=== PATIENT | female | born 1985 | race Caucasian/White ===

== ENCOUNTER → 2016-04-15 | Outpatient (CLI) | payer BC, OTHER ==
[~2016-04-15] MED LIST: MOTRIN PO; TYLE325T5 PO; multivitamin PO
[2016-04-15 19:07] LABS: BASO % 0.3 % (0.0-1.0); EOS # 0.2 K/mm3 (0.0-0.50); LARGE UNSTAINED CELL # 0.1 K/mm3 (0.0-0.4); LARGE UNSTAINED CELL % 1.8 % (0.0-4.0); LYMPH # 2.5 K/mm3 (1.5-4.5); LYMPH % 30.6 % (24.0-44.0); MEAN CORPUSCULAR HEMOGLOBIN 32.6 pg (27.0-33.0); MEAN CORPUSCULAR HGB CONC 33.6 g/dl (32.0-36.5); MEAN CORPUSCULAR VOLUME 96.9 fl (80.0-96.0); MONO # 0.5 K/mm3 (0.0-0.8); MONO % 6.4 % (0.0-5.0); NEUTROPHILS # 4.5 K/mm3 (1.8-7.7); PLATELET COUNT, AUTOMATED 235 k/mm3 (150-450); RED CELL DISTRIBUTION WIDTH 12.5 % (11.5-14.5); WHITE BLOOD COUNT 7.7 K/mm3 (4.0-10.0)
[2016-04-16 11:04] LABS: HBsAg Prenatal NEGATIVE (NEGATIVE)
[2016-04-16 14:46] LABS: CONTROL LINE INT CTR LINE PRESENT; HIV SCRN NEGATIVE (NEGATIVE); HIV SCRN1 NEGATIVE (NEGATIVE)
== END ==
LOC: M SMT 13:18
PROVIDERS: ATTEND Advanced Practice Midwife
DX: Z34.81 Encounter for supervision of other normal pregnancy, first trimester (principal)

== ENCOUNTER → 2016-07-15 | Outpatient (CLI) | payer BC, OTHER ==
--- NOTE | 2016-07-16 05:10 | REP ---
Clinical: Anatomical evaluation. Comparison: None . Findings: Examination demonstrates a single live intrauterine in variable presentation. motion is identified by technologist. Placenta is noted anteriorly and grade zero without evidence for placenta previa or abruption. Amniotic fluid volume is normal. Cervix measures 4.7 cm in length and appears closed. No evidence for nuchal cord. Gestational age by LMP 18 weeks 4 days with SHORTY 12/12/2016 . Gestational age by current measurements 19 weeks 2 days with SHORTY 12/07/2016 . FHR equals 136 beats per minute. BPD 4.3 cm 19 weeks 0 days HC 16.5 cm 19 weeks 1 day AC 14.4 cm 19 weeks 5 days FL 3.0 cm 19 weeks 1 day HL 2.8 cm 19 weeks 0 days HC/AC ratio 1.14 Estimated weight 292 grams ( 79th percentile). Anatomical assessment demonstrates normal structures including cranium, choroid plexus, cavum, cerebellum/posterior fossa, facial features, lungs, four-chamber heart/ventricular outflow tracts, diaphragm, stomach, cord insertion/three-vessel cord, kidneys/bladder, and extremities. Echogenic focus within the left cardiac ventricle likely prominent chordae tendineae. Suboptimal evaluation of the spine due to positioning. Impression: 1. Single live intrauterine in variable presentation demonstrating appropriate interval growth. 2. Anatomical limitations and findings as described above may warrant followup and reevaluation. Signed by Kash Burrell MD 07/16/2016 05:02 A
== END ==
LOC: M RAD 17:01
PROVIDERS: ATTEND Advanced Practice Midwife
DX: Z36 Encounter for antenatal screening of mother (principal)

== ENCOUNTER → 2016-07-15 | Outpatient (CLI) | payer BC, OTHER | LOC: M LAB 18:02 | PROVIDERS: ATTEND Advanced Practice Midwife | DX: Z36 Encounter for antenatal screening of mother (principal) ==

== ENCOUNTER → 2016-08-04 | Outpatient (CLI) | payer BC, OTHER ==
--- NOTE | 2016-08-04 12:15 | REP ---
Obstetric sonography: History: Supervision of followup anatomy. Comparison study July 15, 2016. Previous study showed less than optimal evaluation of the spine. Findings: Scanning through the gravid uterus demonstrates a viable single intrauterine gestation in a cephalic lie. motion is observed and heart rate is recorded at 141 beats per minute. An anterior grade 0 placenta is seen without evidence of previa or abruption. Closed cervical length is 3.4 cm visualized transabdominally. Amniotic fluid is subjectively normal. No extrauterine abnormality is observed. There has been appropriate interval growth. No anomaly is seen. An echogenic focus is again noted in the left ventricle. The following anatomic structures are identified and felt to be unremarkable today: cranium, choroid plexus, cavum, face and profile, lungs, four-chamber heart with left and right ventricular outflow tract views, diaphragm, left-sided stomach, abdominal wall cord insertion, three-vessel umbilical cord, kidneys and bladder, spine, upper and lower extremities. Biometry chart: BPD 4.9 cm = 20 weeks 6 days head circumference 19.3 cm = 21 weeks 4 days Abdominal circumference 18.8 cm = 23 weeks 4 days Femur length 3.9 cm = 22 weeks 4 days Humeral length 3.7 cm = 23 weeks 0 days Cerebellar diameter 2.4 cm = 21 weeks 6 days HC/AC ratio normal 1.03. Cephalic index 0.69 (0.70-0.86). Estimated weight 541 grams, 1 pound 3 ounces, 96th percentile for 21 weeks 3 days. Impression: Viable single intrauterine gestation at 21 weeks 6 days by today's composite sonographic criteria. Expected gestational age estimate based on prior sonography is 21 weeks 3 days. SHORTY by prior sonography December 12, 2016. Signed by Riccardo Humphries MD 08/04/2016 01:19 P
== END ==
LOC: M SMT 09:54
PROVIDERS: ATTEND Obstetrics & Gynecology
DX: Z34.82 Encounter for supervision of other normal pregnancy, second trimester (principal)

== ENCOUNTER → 2016-09-16 | Outpatient (CLI) | payer BC, OTHER ==
[~2016-09-16] MED LIST changes: +BUSP5TA PO
[2016-09-16 21:21] LABS: BASO % 0.2 % (0.0-1.0); EOS # 0.2 K/mm3 (0.0-0.50); EOS % 1.7 % (0.0-3.0); LARGE UNSTAINED CELL # 0.2 K/mm3 (0.0-0.4); LARGE UNSTAINED CELL % 2.1 % (0.0-4.0); LYMPH # 2.3 K/mm3 (1.5-4.5); LYMPH % 24.3 % (24.0-44.0); MEAN CORPUSCULAR HEMOGLOBIN 30.6 pg (27.0-33.0); MEAN CORPUSCULAR VOLUME 92.8 fl (80.0-96.0); MONO # 0.7 K/mm3 (0.0-0.8); MONO % 8.2 % (0.0-5.0); NEUTROPHILS # 5.5 K/mm3 (1.8-7.7); NEUTROPHILS % 63.5 % (36.0-66.0); PLATELET COUNT, AUTOMATED 256 k/mm3 (150-450); RED CELL DISTRIBUTION WIDTH 12.7 % (11.5-14.5); WHITE BLOOD COUNT 8.7 K/mm3 (4.0-10.0)
== END ==
LOC: M WUC 15:06
PROVIDERS: ATTEND Advanced Practice Midwife
DX: Z34.83 Encounter for supervision of other normal pregnancy, third trimester (principal)

== ENCOUNTER → 2016-11-24 | Outpatient (REF) | payer BC, OTHER | LOC: M LAB REF 17:08 | PROVIDERS: ATTEND Advanced Practice Midwife | DX: Z34.83 Encounter for supervision of other normal pregnancy, third trimester (principal) ==

== ENCOUNTER → 2016-12-04 | Outpatient (CLI) | payer BC, OTHER ==
--- NOTE | 2016-12-04 17:29 | REP ---
Obstetric ultrasound for growth: There is a single intrauterine gestation in a vertex presentation. There is movement and cardiac activity. The heart rate is 136 beats per minute. The placenta is anterior. There is no placenta previa or abruptio. Placenta is grade 1. The amniotic fluid volume subjectively is normal. The amniotic fluid index is 19.3 (7.2 - 22.7). The gestational age by the ultrasound today is 39 weeks 2 days with an SHORTY of 12/09/2016. Gestational age by the first ultrasound is 39 weeks 4 days and by LMP 38-week 6 days. Gestational Age: Weight: 4040 gm/ 8 lbs, 14 oz Wt% 84 % for 38 w six d S/D ratio 1.92 (2.30-3.30) Resistive Index 0.48 (0.59-0.75 Diastolic Velocity 30.8 (>10 cm/sec) Signed by Luis Harrington MD 12/04/2016 05:21 P
== END ==
LOC: M RAD 16:16
PROVIDERS: ATTEND Advanced Practice Midwife
DX: Z36.2 Encounter for other antenatal screening follow-up (principal)

== ENCOUNTER 2016-12-08 06:18 | Inpatient (IN) | payer BC, OTHER ==
[~2016-12-08] VITALS: Ht 160 cm; Wt 87.2 kg
[2016-12-08] VITALS (40 sets, daily range): BP systolic 78–147; BP diastolic 41–81
[~2016-12-08 06:18] MED LIST changes: -BUSP5TA PO
[2016-12-08] MEDS ORDERED: LACTATED RINGER'S 1000 ML IV STA (06:59)
[2016-12-08] MEDS ORDERED: VANCOMYCIN HCL 1,000 MG, VIAL MATE ADAPTER 1 EACH in D5W 250 ML IV SCH (07:00)
[2016-12-08 08:05] LABS: MEAN CORPUSCULAR HEMOGLOBIN 27.6 pg (27.0-33.0); MEAN CORPUSCULAR HGB CONC 32.2 g/dl (32.0-36.5); MEAN CORPUSCULAR VOLUME 85.8 fl (80.0-96.0); PLATELET COUNT, AUTOMATED 218 10^3/uL (150-450); RED CELL DISTRIBUTION WIDTH 14.6 % (11.5-14.5); WHITE BLOOD COUNT 9.8 10^3/uL (4.0-10.0)
[2016-12-08] MEDS ORDERED: miSOPROStol 50 MCG 1/2 TAB (S0191) PO ONE (08:15)
[2016-12-08] MEDS: LR 1,000 ML IV SCH ×3 (08:25→19:20)
[2016-12-08] MEDS ORDERED: BUSP5TA PO (09:21)
[2016-12-08] MEDS ORDERED: OXYTOCIN DRIP 30 UNITS in APPROPRIATE DILUENT 1 EA IV SCH (11:15)
--- NOTE | 2016-12-08 12:05 | HPE ---
DATE OF ADMISSION: 12/08/2016 31-year-old, (G) 2, para (P) 1 female, at 39-3/7 weeks gestation by last menstrual period (LMP) consistent with 8 week ultrasound, estimated date of confinement (EDC) 02/12/2016, presents for labor induction. The indication for induction is large for gestational age infant on ultrasound/ Estimated weight of 4040 grams on recent ultrasound imaging. She has occasional contractions. She denies vaginal bleeding. COURSE: The patient initiated care at 8 weeks gestation on 05/07/2016. Her first trimester blood pressure 126/60, weight 169 pounds. course was unremarkable. OBSTETRICAL HISTORY: November 2013, 41-4/7 weeks, vaginal delivery, 9 pound 3 ounce, male infant, no complications. MEDICAL HISTORY: Depression/anxiety. SURGICAL HISTORY: None. ALLERGIES: 1. TYLENOL. 2. PENICILLIN. MEDICATIONS: - BuSpar 5 twice a day SOCIAL HISTORY: The patient is . She denies cigarettes, alcohol or drug use. She lives in [place]. FAMILY HISTORY: Noncontributory. PHYSICAL EXAMINATION: Blood pressure 134/74. She is in no apparent distress. Head and neck exam normal. Lungs clear. Heart regular rate and rhythm. Abdomen nontender, gravid. heart tones category 1. Sterile vaginal exam: 3 m, 70%, -2 station, vertex. Extremities nontender. LABORATORIES: Blood type is A+, rubella immune. RPR nonreactive. Hepatitis B and C negative. HIV negative. Diabetes screen of 100. GBS positive 11/24/2016. ASSESSMENT: 31-year-old, 2, para 1, at 39-3/7 weeks gestation, presents for labor induction. The patient is admitted on 12/08/2016. Risks of induction were discussed. The patient will be treated with Ancef for GBS positive status.
[2016-12-08] MEDS ORDERED: FENTANYL 2MCG/ML ROPIVACAINE 0.2% IN 0.9% NACL 200ML IVBAG As Ordered ONE (16:15)
[2016-12-08] MEDS ORDERED: ePHEDrine SULFATE 25 MG/5 ML(5MG/ML) SYRINGE As Ordered ONE (17:10)
[2016-12-08] MEDS ORDERED: diphenhydrAMINE INJ 50MG/ML VIAL (J1200) IV PRN (17:15)
[2016-12-08] MEDS ORDERED: LACTATED RINGER'S 1000 ML IV PRN (17:15)
[2016-12-08] MEDS ORDERED: REFRIGERATOR IV KEYS XX PRN (17:15)
[2016-12-08] MEDS ORDERED: EPIDURAL/PCA KEYS XX PRN (17:15)
[2016-12-08] MEDS ORDERED: NALOXONE INJ 0.4 MG/1 ML VIAL (J2310) IV PRN (17:15)
[2016-12-08] MEDS ORDERED: ePHEDrine SULFATE 25 MG/5 ML(5MG/ML) SYRINGE IV PRN (17:15)
[2016-12-08] MEDS ORDERED: EPIDURAL COMMENT XX SCH (17:15)
[2016-12-08] MEDS ORDERED: FENTANYL/ROPIVACAINE/NACL BAG 200 ML EPIDURAL SCH (17:15)
[2016-12-08] MEDS ORDERED: ONDANSETRON 4MG/2ML VIAL (J2405) IV PRN (17:15)
[2016-12-09] VITALS (7 sets, daily range): BP systolic 116–128; BP diastolic 66–95
[2016-12-09] MEDS ORDERED: ONDANSETRON 4MG/2ML VIAL (J2405) IV PRN
[2016-12-09] MEDS ORDERED: METHYLERGONOVINE MALEATE 0.2 MG TAB PO PRN
[2016-12-09] MEDS ORDERED: RHOGAM 300 MCG (1500 IU) INJ (J2790) IM SCH
[2016-12-09] MEDS ORDERED: DOCUSATE SODIUM 100 MG CAP PO PRN
[2016-12-09] MEDS ORDERED: OXYTOCIN DRIP 30 UNITS in APPROPRIATE DILUENT 1 EA IV ONE ×2
[2016-12-09] MEDS ORDERED: MEASLES,MUMPS,RUBELLA VACCINE INJ (MMR-II) (90707) SC SCH
[2016-12-09] MEDS ORDERED: DIBUCAINE 1% OINTMENT 30GM TOP PRN
--- NOTE | 2016-12-09 00:18 | DN ---
DATE: 12/08/2016 PREDELIVERY DIAGNOSIS: 39-3/7 weeks gestation. POSTDELIVERY DIAGNOSIS: Delivered. PROCEDURE: Spontaneous vaginal delivery. STEWARD/STEWARDESS LOUNGE: Dr. Tom Riggins ANESTHESIA: Epidural. ESTIMATED BLOOD LOSS: 300 mL. FINDINGS: 9 pound 2 ounce or 4150 gram male infant. scores 9 and 10. DELIVERY SUMMARY: After approximately a 1 hour and 15 minute second stage, the patient had a spontaneous delivery of a 9 pound 2 ounce male infant, scores 9 and 10, under epidural anesthesia. There was no nuchal cord. The shoulders delivered spontaneously with ease. The infant cried spontaneously and was handed to the mother. The cord was doubly clamped and cut. The placenta delivered spontaneously and appeared to be intact. The patient received intravenous (IV) Pitocin immediately after delivery of the placenta. A small second degree perineal laceration was repaired with #2-0 chromic in the usual fashion. Sponge and needle counts were correct.
[2016-12-09] MEDS: ACETAMINOPHEN 500 MG TAB PO PRN ×2 (01:45→13:20)
[2016-12-09] MEDS: PRENATAL VITAMINS CHEWABLE TABLET PO SCH (07:54)
[2016-12-10] MEDS: ACETAMINOPHEN 500 MG TAB PO PRN (03:35)
[2016-12-10 06:00] VITALS: BP 111/71
[2016-12-10] MEDS: PRENATAL VITAMINS CHEWABLE TABLET PO SCH (08:32)
== END 2016-12-10 10:35 | disposition home or self-care (01) | DRG 560 ==
LOC: M LDI 06:18 → M OBS 12-09 01:23
PROVIDERS: ADMIT Specialist; ATTEND Specialist
PROC: 10E0XZZ Delivery of Products of Conception, External Approach (ICD-10-PCS; principal; 2016-12-08)
PROC: 0KQM0ZZ Repair Perineum Muscle, Open Approach (ICD-10-PCS; 2016-12-08)
DX: O70.1 Second degree perineal laceration during delivery (principal); Z37.0 Single live birth; Z3A.39 39 weeks gestation of pregnancy; O99.820 Streptococcus B carrier state complicating pregnancy

== ENCOUNTER → 2017-07-20 | Outpatient (REF) | payer BC, OTHER | LOC: M LAB REF 18:55 | DX: Z01.419 Encounter for gynecological examination (general) (routine) without abnormal findings (principal); Z11.51 Encounter for screening for human papillomavirus (HPV) | CPT/HCPCS: G0123 ==

== ENCOUNTER → 2017-07-28 | Outpatient (CLI) | payer BC, OTHER ==
[2017-07-28 20:38] LABS: HEMATOCRIT 37.3 % (36.0-47.0); HEMOGLOBIN 12.5 g/dl (12.0-15.5); MEAN CORPUSCULAR HEMOGLOBIN 31.3 pg (27.0-33.0); MEAN CORPUSCULAR HGB CONC 33.5 g/dl (32.0-36.5); MEAN CORPUSCULAR VOLUME 93.5 fl (80.0-96.0); PLATELET COUNT, AUTOMATED 245 10^3/uL (150-450); RED BLOOD COUNT 3.99 10^6/uL (4.00-5.40); RED CELL DISTRIBUTION WIDTH 12.8 % (11.5-14.5)
[2017-07-28 20:53] LABS: CHOLESTEROL LEVEL 174 MG/DL (<200); CHOLESTEROL RISK RATIO 3.551 (<5); HDL CHOLESTEROL 49 MG/DL (>40); LDL CHOLESTEROL 83.6 MG/DL (<100); NON-HDL-C 125 MG/DL; TRIGLYCERIDES LEVEL 207 MG/DL (<150)
[2017-07-29 08:48] LABS: WHITE BLOOD COUNT 7.8 10^3/uL (4.0-10.0)
[2017-07-29 08:49] LABS: FREE T4 0.97 NG/DL (0.76-1.46)
== END ==
LOC: M LRY 16:17
DX: R63.5 Abnormal weight gain (principal); R53.83 Other fatigue
CPT/HCPCS: 84443

== ENCOUNTER → 2018-09-07 | Outpatient (REF) | payer OTHER ==
[~2018-09-07] MED LIST changes: +BUSP5TA PO
[2018-09-09 14:09] LABS: HPV HYBRID CAPTURE II Negative (Negative)
== END ==
LOC: M LAB REF 11:52
PROVIDERS: ATTEND Advanced Practice Midwife
DX: Z12.4 Encounter for screening for malignant neoplasm of cervix (principal)

== ENCOUNTER → 2019-12-20 | Outpatient (REF) | payer OTHER | LOC: M SFHCWAGY 10:42 | PROVIDERS: ATTEND Advanced Practice Midwife | DX: Z12.4 Encounter for screening for malignant neoplasm of cervix (principal); Z77.9 Other contact with and (suspected) exposures hazardous to health | CPT/HCPCS: 87624; G0123 ==

== ENCOUNTER → 2020-01-23 | Outpatient (CLI) | payer SELFPAY | LOC: M LABSMTC 14:39 | PROVIDERS: ATTEND Pediatrics | DX: Z20.828 Contact with and (suspected) exposure to other viral communicable diseases (principal) ==

== ENCOUNTER → 2021-05-27 | Outpatient (REF) | payer OTHER | LOC: M PLALAB 16:35 | PROVIDERS: ATTEND Advanced Practice Midwife | DX: Z53.9 Procedure and treatment not carried out, unspecified reason (principal) ==

== ENCOUNTER → 2021-05-28 | Outpatient (CLI) | payer OTHER | LOC: M PLALAB 11:06 | PROVIDERS: ATTEND Advanced Practice Midwife | DX: Z12.4 Encounter for screening for malignant neoplasm of cervix (principal); N91.2 Amenorrhea, unspecified | CPT/HCPCS: 36415; 84702; 87624; G0123 ==

== ENCOUNTER → 2021-05-30 | Outpatient (CLI) | payer OTHER | LOC: M PLALAB 16:00 | PROVIDERS: ATTEND Advanced Practice Midwife | DX: N91.2 Amenorrhea, unspecified (principal) ==

== ENCOUNTER → 2021-07-22 | Outpatient (CLI) | payer BC, OTHER | LOC: M PLALAB 13:40 | PROVIDERS: ATTEND Advanced Practice Midwife | DX: Z34.80 Encounter for supervision of other normal pregnancy, unspecified trimester (principal) ==

== ENCOUNTER → 2021-09-06 | Outpatient (CLI) | payer BC, OTHER | LOC: M WHC 12:54 | PROVIDERS: ATTEND Obstetrics & Gynecology | DX: Z34.92 Encounter for supervision of normal pregnancy, unspecified, second trimester (principal); Z3A.20 20 weeks gestation of pregnancy ==

== ENCOUNTER → 2021-09-09 | Outpatient (CLI) | payer BC, OTHER ==
[2021-09-09 13:10] LABS: HEMATOCRIT 36.5 % (36.0-47.0); HEMOGLOBIN 11.9 g/dl (12.0-15.5); MEAN CORPUSCULAR HGB CONC 32.6 g/dl (32.0-36.5); MEAN CORPUSCULAR VOLUME 95.1 fl (80.0-96.0); PLATELET COUNT, AUTOMATED 225 10^3/uL (150-450); RED BLOOD COUNT 3.84 10^6/uL (4.00-5.40); WHITE BLOOD COUNT 8.7 10^3/uL (4.0-10.0)
[2021-09-09 14:07] LABS: HEPATITIS C VIRUS ABY INDEX < 0.0 INDEX (<0.8); HIV 1&2 SCREEN CENTAUR NEGATIVE (NEGATIVE)
[2021-09-09 15:12] LABS: GC DNA AMPLIFICATION NEGATIVE (NEGATIVE)
== END ==
LOC: M PLALAB 10:28
PROVIDERS: ATTEND Advanced Practice Midwife
DX: O09.521 Supervision of elderly multigravida, first trimester (principal); Z3A.00 Weeks of gestation of pregnancy not specified

== ENCOUNTER → 2021-09-26 | Outpatient (CLI) | payer BC, OTHER | LOC: M WHC 10:22 | PROVIDERS: ATTEND Obstetrics & Gynecology | DX: Z36.2 Encounter for other antenatal screening follow-up (principal); Z3A.22 22 weeks gestation of pregnancy ==

== ENCOUNTER → 2021-10-30 | Outpatient (CLI) | payer BC, OTHER ==
[2021-10-30 15:40] LABS: HEMATOCRIT 33.9 % (36.0-47.0); MEAN CORPUSCULAR HEMOGLOBIN 30.6 pg (27.0-33.0); MEAN CORPUSCULAR HGB CONC 32.4 g/dl (32.0-36.5); MEAN CORPUSCULAR VOLUME 94.2 fl (80.0-96.0); PLATELET COUNT, AUTOMATED 257 10^3/uL (150-450); WHITE BLOOD COUNT 9.7 10^3/uL (4.0-10.0)
[2021-10-30 17:17] LABS: GC DNA AMPLIFICATION NEGATIVE (NEGATIVE)
== END ==
LOC: M PLALAB 13:11
PROVIDERS: ATTEND Obstetrics & Gynecology
DX: Z36.9 Encounter for antenatal screening, unspecified (principal); Z3A.24 24 weeks gestation of pregnancy

== ENCOUNTER → 2021-11-07 | Outpatient (CLI) | payer BC, OTHER | LOC: M LAB 09:22 | PROVIDERS: ATTEND Obstetrics & Gynecology | DX: Z34.82 Encounter for supervision of other normal pregnancy, second trimester (principal) ==

== ENCOUNTER → 2021-12-26 | Outpatient (REF) | payer BC, OTHER | LOC: M SFHCWAGY 17:01 | PROVIDERS: ATTEND Obstetrics & Gynecology | DX: Z34.93 Encounter for supervision of normal pregnancy, unspecified, third trimester (principal) ==

== ENCOUNTER → 2022-01-10 | Outpatient (CLI) | payer BC, OTHER | LOC: M WHC 07:27 | PROVIDERS: ATTEND Advanced Practice Midwife | DX: O09.523 Supervision of elderly multigravida, third trimester (principal); Z3A.37 37 weeks gestation of pregnancy ==

== ENCOUNTER 2022-01-18 20:22 | Inpatient (IN) | payer BC, OTHER ==
[~2022-01-18] VITALS: Ht 160 cm; Wt 94.1 kg
[2022-01-18 20:45] VITALS: BP 125/67
[2022-01-18] MEDS ORDERED: TUMS500C PO (20:58)
[2022-01-18] MEDS ORDERED: PRENTAB9 PO (20:58)
[2022-01-18] MEDS ORDERED: HOME MED LIST COMPLETE! XX SCH (21:00)
[2022-01-18 21:18] VITALS: BP 131/77
[2022-01-18 21:55] LABS: HEMATOCRIT 32.3 % (36.0-47.0); HEMOGLOBIN 10.4 g/dl (12.0-15.5); MEAN CORPUSCULAR HEMOGLOBIN 28.1 pg (27.0-33.0); MEAN CORPUSCULAR HGB CONC 32.2 g/dl (32.0-36.5); MEAN CORPUSCULAR VOLUME 87.3 fl (80.0-96.0); PLATELET COUNT, AUTOMATED 239 10^3/uL (150-450)
[2022-01-18] MEDS ORDERED: LIDOCAINE 1% MDV 20ML VIAL INFIL PRN (22:10)
[2022-01-18] MEDS ORDERED: METHYLERGONOVINE MALEATE 0.2 MG/ML VIAL (J2210) IM PRN (22:10)
[2022-01-18] MEDS ORDERED: TRANEXAMIC ACID INJection 1,000 MG in NS 100 ML IV PRN (22:10)
[2022-01-18] MEDS ORDERED: OXYTOCIN DRIP 30 UNITS in IV 1 EA IV PRN (22:10)
[2022-01-18 22:30] VITALS: BP 125/72
[2022-01-18] MEDS ORDERED: miSOPROStol 50MCG 1/2 TABLET PO SCH (22:30)
[2022-01-18 23:00] VITALS: BP 127/71
[2022-01-19] VITALS (37 sets, daily range): BP systolic 94–156; BP diastolic 51–95
[2022-01-19] MEDS ORDERED: OXYTOCIN DRIP 30 UNITS in IV 1 EA IV SCH ×2 (03:40→09:30)
[2022-01-19] MEDS ORDERED: LR 1,000 ML IV SCH (03:40)
[2022-01-19] MEDS ORDERED: EPIDURAL/PCA KEYS XX PRN (05:30)
[2022-01-19] MEDS ORDERED: NALOXONE INJ 0.4MG/1ML VIAL IV PRN (05:30)
[2022-01-19] MEDS ORDERED: LR 500 ML IV PRN (05:30)
[2022-01-19] MEDS ORDERED: FENTANYL/ROPIVACAINE/NACL BAG 100 ML EPIDURAL SCH (05:30)
[2022-01-19] MEDS ORDERED: diphenhydrAMINE 50MG/ML VIAL IV PRN (05:30)
[2022-01-19] MEDS ORDERED: ePHEDrine SULFATE 25 MG/5 ML(5MG/ML) SYRINGE IVP PRN (05:30)
[2022-01-19] MEDS ORDERED: ONDANSETRON 4MG 2ML VIAL IV PRN (05:30)
[2022-01-19] MEDS ORDERED: DOCUSATE SODIUM 100MG CAPSULE PO PRN (09:30)
[2022-01-19] MEDS ORDERED: RHOGAM 300 MCG (1500 IU) INJ (J2790) IM SCH (09:30)
[2022-01-19] MEDS ORDERED: METHYLERGONOVINE MALEATE 0.2 MG TAB PO PRN (09:30)
[2022-01-19] MEDS ORDERED: DIBUCAINE 1% OINTMENT 30GM TOP PRN (09:30)
[2022-01-19] MEDS ORDERED: MOM 30ML SUSPENSION UDC PO PRN (09:30)
[2022-01-19] MEDS ORDERED: ACETAMINOPHEN TAB 650MG DOSE (2X325MG) PO PRN (09:30)
[2022-01-19] MEDS ORDERED: ACETAMINOPHEN 500 MG TAB PO PRN (09:30)
[2022-01-20 06:00] VITALS: BP 110/62
[2022-01-20] MEDS ORDERED: PRENATAL VITAMINS CHEWABLE TABLET PO SCH (09:00)
[2022-01-20] MEDS ORDERED: ACET-683 PO (12:43)
[2022-01-21] MEDS ORDERED: MEASLES,MUMPS,RUBELLA VACCINE INJ (MMR-II) (90707) SC.IMMUN ONE (09:00)
== END 2022-01-20 15:00 | disposition home or self-care (01) | DRG 560 ==
LOC: M LDI 20:22 → M OBS 01-19 14:15
PROVIDERS: ADMIT Obstetrics & Gynecology; ATTEND Obstetrics & Gynecology
PROC: 10E0XZZ Delivery of Products of Conception, External Approach (ICD-10-PCS; principal; 2022-01-19)
PROC: 0HQ9XZZ Repair Perineum Skin, External Approach (ICD-10-PCS; 2022-01-19)
PROC: 10907ZC Drainage of Amniotic Fluid, Therapeutic from Products of Conception, Via Natural or Artificial Opening (ICD-10-PCS; 2022-01-19)
DX: O70.0 First degree perineal laceration during delivery (principal); O09.523 Supervision of elderly multigravida, third trimester; Z37.0 Single live birth; Z3A.39 39 weeks gestation of pregnancy; Z88.0 Allergy status to penicillin; Z88.6 Allergy status to analgesic agent; Z88.8 Allergy status to other drugs, medicaments and biological substances; O69.82X0 Labor and delivery complicated by other cord entanglement, without compression, not applicable or unspecified

== ENCOUNTER → 2023-01-13 | Outpatient (REF) | payer BC, OTHER ==
[~2023-01-13] MED LIST changes: +ACET-683 PO; +PRENTAB9 PO; +TUMS500C PO
== END ==
LOC: M SFHCWAGY 13:32
PROVIDERS: ATTEND Advanced Practice Midwife
DX: Z12.4 Encounter for screening for malignant neoplasm of cervix (principal)
CPT/HCPCS: 87624; G0123

== ENCOUNTER → 2024-12-15 | Outpatient (REF) | payer BC ==
[2024-12-17 14:43] LABS: HPV APTIMA Not Detected (Not Detected)
== END ==
LOC: M PLALAB 10:37
PROVIDERS: ATTEND Physician Assistant
DX: Z12.4 Encounter for screening for malignant neoplasm of cervix (principal)
CPT/HCPCS: 87624; G0123

== ENCOUNTER → 2024-12-30 | Outpatient (REF) | payer BC ==
[2024-12-30 11:48] LABS: LUTEINIZING HORMONE 27.2 mIU/ML
[2024-12-30 11:51] LABS: TESTOSTERONE 26.0 NG/DL (14-76)
== END ==
LOC: M SFHCPLAZ 09:56
PROVIDERS: ATTEND Physician Assistant
DX: R63.5 Abnormal weight gain (principal)